=== PATIENT | female | born 1980 ===

== ENCOUNTER 2017-02-08 19:06 | Emergency (ER) | payer OTHER ==
[2017-02-08 19:19] VITALS: RESP 18; TEMP 98.8
--- NOTE | 2017-02-08 19:51 | C.PDOC ---
History Of Present Illness 36 year old female w/o significant PMHx presents to the ED for evaluation of gradually worsening lower back pain for approximately four days. Patient describes pain as aching, localized over lower back, worse with movement. For past few days, pt noted radiation of pain down to Right leg. Otherwise, pt denies known direct trauma, fever, chills, sore throat, CP, SOB, dyspnea, abdominal pain, nausea, vomiting, UTI sx, saddle anesthesia, incontinence, denies weakness, sensory or vascular deficits to B/L LEs. Ambulate to Ed for evaluation, not in any apparent distress. Time Seen by Provider: 02/08/17 19:29 Chief Complaint (Nursing): Back Pain History Per: Patient History/Exam Limitations: no limitations Onset/Duration Of Symptoms: Days (4 days ), Gradual Current Symptoms Are (Timing): Still Present Quality Of Discomfort: "Pain" Previous Symptoms: None Associated Symptoms: None Exacerbating Factor(s): Movement Recent travel outside of the [place]: No Past Medical History Reviewed: Historical Data, Nursing Documentation, Vital Signs Vital Signs: Last Vital Signs Temp 98.8 F 02/08/17 19:18 Pulse 79 02/08/17 20:43 Resp 18 02/08/17 20:43 BP 124/69 02/08/17 20:43 Pulse Ox 97 02/08/17 21:07 Family History: States: Unknown Family Hx - Social History Hx Alcohol Use: No Hx Substance Use: No Review Of Systems Constitutional: Negative for: Fever, Chills Cardiovascular: Negative for: Chest Pain Respiratory: Negative for: Shortness of Breath Gastrointestinal: Negative for: Nausea, Vomiting, Abdominal Pain, Diarrhea Musculoskeletal: Positive for: Back Pain Physical Exam - Physical Exam Appears: Well, Non-toxic, No Acute Distress Skin: Normal Color, Warm, Dry, No Rash, No Ecchymosis Eye(s): bilateral: PERRL Throat: No Erythema, No Drooling Neck: Normal ROM, No Midline Cervical Tenderness, No Paracervical Tenderness, No Step Off Deformity, Supple Gastrointestinal/Abdominal: Soft, No Tenderness, No Distention, No Guarding, No Rebound Back: No CVA Tenderness, No Vertebral Tenderness, Decreased ROM (lumbar spine due to pain), Paraspinal Tenderness (diffuse lumbar paraspinal tenderness.) Extremity: No Tenderness, No Pedal Edema, No Deformity Neurological/Psych: Oriented x3, Normal Speech, Normal Motor, Normal Sensation, Normal Reflexes ED Course And Treatment - Laboratory Results Urine POC: Negative O2 Sat by Pulse Oximetry: 97 (room air ) Progress Note: On re-eval, pt is afebrile, hemodynamicaly stable. Non-toxic. AMbulatory in ED with stable gait. Neck: Supple. Abd: benign, (-) guardng, (- ) rebound. Back: (-) CVA tenderness. Neurological intact. UA results review and appears normal. Pt has clinical findings c/w lower back strain r/o lumbar radiculopathy. Pt advised and ref. to F/u with PMD in 2-3 days for re-eavl. return to ED if any worsening or new changes. Disposition Counseled Patient/Family Regarding: Studies Performed, Diagnosis, Need For Followup, Rx Given - Disposition Referrals: [facility] at [facility] [Outside] Disposition: HOME/ ROUTINE Disposition Time: 20:20 Condition: STABLE Additional Instructions: LIgt duty to lower back, avoid bending, heavy lifting for 1 week Consider BACK BRACE AT WORK FOR PROTECTION Take medication as prescribed Follow up with PMD in 2-3 days for re-evaluation. Return to ED if any worsening or new changes. Prescriptions: Ibuprofen [Motrin Tab] 600 mg PO Q6 #20 tab Methocarbamol [Robaxin] 500 mg PO TID #14 tab traMADol [Ultram] 50 mg PO TID #7 tab Instructions: Lumbar Radiculopathy (ED) Forms: [employer] (Bengali), [employer] (Greek), Work Excuse Print Language: INDONESIAN - Clinical Impression Clinical Impression: Lumbar radiculopathy - Scribe Statement The provider has reviewed the documentation as recorded by the Scribe Kiera Ray All medical record entries made by the Scribe were at my direction and personally dictated by me. I have reviewed the chart and agree that the record accurately reflects my personal performance of the history, physical exam, medical decision making, and the department course for this patient. I have also personally directed, reviewed, and agree with the discharge instructions and disposition.
[2017-02-08 20:16] LABS: RBC URINE < 1 /hpf (0-3); URINE BILIRUBIN NEGATIVE (NEGATIVE); URINE BLOOD 1+ (NEGATIVE); URINE COLOR Yellow (YELLOW); URINE GLUCOSE (UA) NORMAL (Normal); URINE KETONE NEGATIVE (NEGATIVE); URINE LEUKOCYTE ESTERASE NEG Leu/uL (Negative); URINE PROTEIN NEGATIVE (NEGATIVE); URINE UROBILINOGEN NORMAL mg/dL (0.2-1.0); WBC URINE 1 /hpf (0-5)
[2017-02-08 20:44] VITALS: BP 124/69; PULSE 79
[2017-02-08 21:08] VITALS: O2SAT 97
== END 2017-02-08 20:45 | disposition home or self-care (01) ==
LOC: C.ER 19:06
DX: M54.16 Radiculopathy, lumbar region (principal)